=== PATIENT | male | born 1950 | race Caucasian/White ===

== ENCOUNTER 2016-11-27 08:28 | Day surgery (SDC) | payer OTHER ==
[2016-10-15 13:59] VITALS: BMI 32.5
[2016-11-27] VITALS (10 sets, daily range): BP systolic 119–131; BP diastolic 67–85; PULSE 54–69; RESP 13–20; Ht 188 cm; Wt 118.2 kg
[~2016-11-27] VITALS: Ht 188 cm; Wt 118.2 kg
[~2016-11-27 08:28] MED LIST: BUPIVACAINE 0.25% (MPF) 30 ML INJ INJ ONE; CIPRO 400 MG/200 ML D5W IVPB ONE; CIPROFLOXACIN 400 MG in D5W 200 ML IVPB SCH
[2016-11-27] MEDS ORDERED: CIPROFLOXACIN 400 MG in D5W 200 ML IVPB ONE (09:30)
[2016-11-27 09:37] LABS: ADD SCAN DIFF NO
[2016-11-27 09:44] LABS: BASOPHILS % 0.5 % (0.0-2.0); EOSINOPHILS # 0.3 10^3/ul (0.0-0.5); EOSINOPHILS % 4.1 % (0.0-7.0); HEMOGLOBIN 15.5 g/dl (14.0-18.0); LYMPHOCYTES # 2.2 10^3/ul (0.8-2.9); LYMPHOCYTES % 34.4 % (15.0-51.0); MEAN CORPUSCULAR HEMOGLOBIN 28.5 pg (29.0-33.0); MEAN CORPUSCULAR HGB CONC 33.7 g/dl (32.0-37.0); MEAN CORPUSCULAR VOLUME 84.6 fl (82.0-101.0); MEAN PLATELET VOLUME 10.2 fl (7.4-10.4); MONOCYTE # 0.6 10^3/ul (0.3-0.9); MONOCYTES % 8.8 % (0.0-11.0); NEUTROPHIL # 3.3 10^3/ul (1.6-7.5); NEUTROPHILS % 51.9 % (39.0-77.0); PLATELET COUNT 203 10^3/UL (140-415); RED BLOOD COUNT 5.44 10^6/ul (4.70-6.10); RED CELL DISTRIBUTION WIDTH 12.5 % (11.5-14.5); WHITE BLOOD COUNT 6.3 10^3/ul (4.8-10.8)
--- NOTE | 2016-11-27 09:53 | RADRPT ---
PROCEDURE: Chest Radiograph. CLINICAL INDICATION: Preop TECHNIQUE: 2 frontal views of the chest. COMPARISON: None available FINDINGS: The heart is magnified. The cardiomediastinal silhouette is within normal limits. No infiltrate o r effusion is seen. The bones are intact. IMPRESSION: 1. No evidence of acute cardiopulmonary disease. RPTAT: KK .Chaitanya Gusman MD, MD Date Time Electronically viewed and signed by .Chaitanya Gusman MD, MD on 11/27/2016 09:52 .B/
[2016-11-27 09:59] LABS: ALBUMIN/GLOBULIN RATIO 1.37; BILIRUBIN,INDIRECT 0.5 mg/dl (0-1.1); BILIRUBIN,TOTAL 0.5 mg/dl (0.2-1.3); CALCIUM 9.1 mg/dl (8.4-10.2); POTASSIUM 4.1 mmol/L (3.5-5.1); TOTAL PROTEIN 6.9 g/dl (6.1-8.1)
[2016-11-27 10:06] LABS: INR 1.05; PARTIAL THROMBOPLASTIN TIME 33.5 Sec (25.0-35.0); PROTIME 13.7 Sec (12.2-14.2); PT RATIO 1.1
[2016-11-27] MEDS ORDERED: MIDAZOLAM 1 MG/ML 2 ML INJ ONE (11:40)
[2016-11-27] MEDS ORDERED: PROPOFOL 40 ML ONE (11:40)
[2016-11-27] MEDS ORDERED: FENTAnyl 50 MCG/ML VIAL ONE (11:40)
--- NOTE | 2016-11-27 12:07 | HP ---
DATE OF ADMISSION: 11/27/2016 HISTORY OF PRESENT ILLNESS: Mo is a 66-year-old male with a left hemiscrotal mass. Scrotal ult rasound demonstrated an atrophied left testicle with a large left hydrocele and bilateral spermatoce les measuring up to 2 cm. He is bothered by the mass and is requesting a hydrocelectomy, left sperm atocelectomy. PAST MEDICAL HISTORY: None. PAST SURGICAL HISTORY: Status post hernia repair. FAMILY HISTORY: Noncontributory. SOCIAL HISTORY: Noncontributory. MEDICATIONS: None. PHYSICAL EXAMINATION: VITAL SIGNS: Stable. CHEST: Lungs clear breath sounds bilaterally. HEART: Regular rate and rhythm. ABDOMEN: Soft, nondistended, nontender. No palpable masses. Flank, no CVA tenderness, no masses. GENITALIA: Normal shaft penis, normal meatus. Large left hemiscrotal mass with inability to palpat e the underlying left testicle. The right testicle is displaced. Otherwise within normal limits. IMPRESSION: Left hydrocele, left spermatocele. PLAN: Left hydrocelectomy, left spermatocelectomy. How the procedure is performed, potential compl ications, side effects, [place] and postoperative course were all discussed. Potential complications i ncluding loss of testicle, infection, hematoma, secondary procedure, pain, anesthetic risks includin g but not limited to DVT, PE, CT, injury to surrounding structures including the penis, urethra, con tralateral testicle, colon and importance of timely removal of a postoperative drain were all review ed with the patient. He would like to proceed with the above. All questions answered. Dictated By: JADEN MONTES/ROSELINE Conf#: [id number] DID#: [id number]
[2016-11-27] MEDS ORDERED: METOCLOPRAMIDE 10 MG INJ ONE (12:28)
[2016-11-27] MEDS ORDERED: ACETAMINOPHEN 1000MG/100ML IV 100 ML ONE (12:28)
[2016-11-27] MEDS ORDERED: DEXAMETHASONE 4 MG/ML 1 ML INJ ONE (12:28)
[2016-11-27] MEDS ORDERED: ONDANSETRON 4 MG INJ ONE (12:28)
[2016-11-27] MEDS ORDERED: KETOROLAC 30 MG INJ ONE (12:28)
[2016-11-27] MEDS ORDERED: HYDROmorphONE (0.2 MG/ML) 10ML SYG IV PRN ×3 (12:30)
[2016-11-27] MEDS ORDERED: METOCLOPRAMIDE 10 MG INJ IV PRN (12:30)
[2016-11-27] MEDS ORDERED: morphine (1 MG/ML) 10ML SYRINGE IV PRN ×3 (12:30)
[2016-11-27] MEDS ORDERED: LABETALOL HCL 20MG INJ IV PRN (12:30)
[2016-11-27] MEDS ORDERED: OXYCODONE/ACETAMINOPHEN (5/325) TAB PO PRN ×2 (12:30)
[2016-11-27] MEDS ORDERED: DIPHENHYDRAMINE 50 MG INJ IV PRN (12:30)
[2016-11-27] MEDS ORDERED: EPHEDrine SULFATE 50 MG/5 ML SYG IV PRN (12:30)
[2016-11-27] MEDS ORDERED: MEPERIDINE 25 MG INJ IV PRN (12:30)
[2016-11-27] MEDS ORDERED: ONDANSETRON 4 MG INJ IV PRN (12:30)
--- NOTE | 2016-11-27 13:29 | PDOCDIS ---
Discharge Instructions CONDITION Patient Condition: Good HOME CARE INSTRUCTIONS: Diet Instructions: Regular ACTIVITY: Activity Restrictions: Slowly Increase Activity FOLLOW UP/APPOINTMENTS Appointments dc to home when awake and stable. Does not need to void before discharge. OTHER ORDERS: Other Orders: as above SCHOOL/WORK RELEASE May return to School/Work on: December 09, 2016 JADEN VALADEZ November 27, 2016 13:29
--- NOTE | 2016-11-27 13:58 | OPR ---
DATE OF OPERATION: 11/27/2016 PREOPERATIVE DIAGNOSIS: Left hydrocele and left spermatocele. POSTOPERATIVE DIAGNOSIS: Left hydrocele and spermatocele. OPERATION PERFORMED: Left hydrocelectomy, left spermatocelectomy. SURGEON: Dr. Valadez. ANESTHESIA: General. COMPLICATIONS: None. HISTORY: Mo Grubbs is a 66-year-old male with a large left hemiscrotal mass. Scrotal ultrasou nd demonstrated a left hydrocele and spermatocele. He presented for left hydrocelectomy and spermat ocelectomy. COMPLICATIONS: None. DESCRIPTION OF PROCEDURE: The patient was brought into the operating room and placed on the operati ng room table in supine position. He was prepped and draped in the usual fashion after anesthesia w as induced. He received Cipro 400 mg IV piggyback x1. Sequential compression devices were applied. Pressure points were padded. A timeout was undertaken. A large left hemiscrotal mass was appreci ated which displaces the shaft of the penis in the right hemiscrotum. A left transverse incision wa s created over the scrotum through dartos muscle down to the tunica vaginalis, which was very dilate d. The tunica vaginalis was from the surrounding structures and then an incision was crea carolyn on the anterior aspect of the tunica vaginalis. There was 75 mL of fluid drained. The vast meghna ority of this large mass was noted to be due to a complex spermatocele which was markedly adherent t o the hydrocele and surrounding structures. Meticulous dissection was undertaken utilizing blunt an d sharp dissection, which allowed for the spermatocele to be taken off of the cord structure, epidid ymis and testicle. The spermatocele was removed intact and sent to pathology. Pinpoint hemostasis was obtained and the filling defect on the testicle/tunica albuginea and epididymis with then recons tructed with interrupted 3-0 and 4-0 Vicryl sutures. The tunica vaginalis was then everted with the redundant portion being removed. Dissection was sent to pathology for further evaluation. The new ly posed edges of the tunica vaginalis were reapproximated with a running stitch of 3-0 Vicryl sutur e. The testicle was then repositioned back into the scrotum after the scrotum was thoroughly irriga carolyn with sterile water. A 1 cm incision was created on the dependent portion of the scrotum which jadon kingsleyd for a Dawood drain to be placed. The Dawood drain was attached to the skin with a 0 silk s uture. Once again, the testicle was noted to be in proper anatomical position and the scrotum was t hen reapproximated in 2 layers, the first layer with a running stitch of 3-0 chromic suture and the skin edges with interrupted 3-0 chromic sutures. A sterile dressing with fluffs and a scrotal suppo rt were applied. He was transferred to recovery room in stable condition and discharged to home on Bactrim-DS 1 tab p.o. b.i.d. for 7 days' time and [place] 5/325 one to 2 tab p.o. q.4h, dispense #40, no refill. Follow up next week for removal of drain and then discontinuation of his antibiotics. Dictated By: JADEN VALADEZ MD EGR/NTS Conf#: [id number] DID#: [id number] CC: JADEN VALADEZ MD;*EndCC*
--- NOTE | 2016-11-27 20:38 | RADRPT ---
Vent Rate: 59 bpm RR Interval: 0 msec WI Interval: 158 msec QRS Duration: 104 msec QT Interval: 422 msec QTC Interval: 417 msec P-R-T [place]: 48 - 57 - 52 degrees Sinus bradycardia Otherwise normal ECG Electronically Signed By: Robert Harry [id number]
== END 2016-11-27 14:53 | disposition home or self-care (01) ==
LOC: SDS 08:28
PROVIDERS: ATTEND Urology
DX: N43.3 Hydrocele, unspecified (principal); N43.40 Spermatocele of epididymis, unspecified; E66.9 Obesity, unspecified; Z68.33 Body mass index [BMI] 33.0-33.9, adult
CPT/HCPCS: 55040; 71010; 80053; 85025; 85610; 85651; 85730; 88304; 93005; J0131; J0744; J1100; J1885; J2250; J2405; J2765; J3010; Z7512; Z7610